=== PATIENT | male | born 1930 | race Caucasian/White ===

== ENCOUNTER 2017-12-19 17:35 | Emergency (ER) | payer MEDICARE, MEDICAID ==
[2017-12-19] MEDS ORDERED: 0.9 % SODIUM CHLORIDE 1,000 ML BAG IV ONE (18:44)
[2017-12-19] MEDS ORDERED: MORPHINE SULFATE 5 MG/ML PFS IVP ONE (18:44)
[2017-12-19] MEDS ORDERED: PROMETHAZINE HCL 6.25 MG in 0.9 % SODIUM CHLORIDE 100ML 100 ML IVPB ONE (18:44)
[2017-12-19] MEDS ORDERED: SILVER SULFADIAZINE 25 GM CREAM TOP ONE (19:11)
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
== END 2017-12-19 19:53 | disposition left against medical advice (07) ==
LOC: ER 17:35
DX: T23.272A Burn of second degree of left wrist, initial encounter (principal); T59.811A Toxic effect of smoke, accidental (unintentional), initial encounter; J68.9 Unspecified respiratory condition due to chemicals, gases, fumes and vapors; X03.1XXA Exposure to smoke in controlled fire, not in building or structure, initial encounter; I10 Essential (primary) hypertension; Y92.009 Unspecified place in unspecified non-institutional (private) residence as the place of occurrence of the external cause
CPT/HCPCS: 99284; J7030

== ENCOUNTER 2017-12-20 10:27 | Emergency (ER) | payer MEDICARE, MEDICAID ==
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
[2017-12-20] MEDS ORDERED: SILVER SULFADIAZINE 25 GM CREAM TOP ONE (11:19)
== END 2017-12-20 11:53 | disposition home or self-care (01) ==
LOC: ER 10:27
DX: T23.272A Burn of second degree of left wrist, initial encounter (principal); X03.1XXA Exposure to smoke in controlled fire, not in building or structure, initial encounter; I10 Essential (primary) hypertension; Y92.009 Unspecified place in unspecified non-institutional (private) residence as the place of occurrence of the external cause
CPT/HCPCS: 99282

== ENCOUNTER 2017-12-21 15:32 | Emergency (ER) | payer MEDICARE, MEDICAID ==
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
[2017-12-21] MEDS ORDERED: SILVER SULFADIAZINE 25 GM CREAM TOP ONE (16:02)
== END 2017-12-21 16:32 | disposition home or self-care (01) ==
LOC: ER 15:32
DX: T23.272A Burn of second degree of left wrist, initial encounter (principal); X03.1XXA Exposure to smoke in controlled fire, not in building or structure, initial encounter; I10 Essential (primary) hypertension; Y92.009 Unspecified place in unspecified non-institutional (private) residence as the place of occurrence of the external cause
CPT/HCPCS: 99283

== ENCOUNTER 2017-12-23 07:51 | Emergency (ER) | payer MEDICARE, MEDICAID ==
[2017-12-23] MEDS ORDERED: SILVER SULFADIAZINE 25 GM CREAM TOP ONE (08:02)
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
== END 2017-12-23 08:21 | disposition home or self-care (01) ==
LOC: ER 07:51
DX: T23.272A Burn of second degree of left wrist, initial encounter (principal); I10 Essential (primary) hypertension
CPT/HCPCS: 99282

== ENCOUNTER 2017-12-25 13:36 | Emergency (ER) | payer MEDICARE, MEDICAID ==
[2017-12-25] MEDS ORDERED: SILVER SULFADIAZINE 25 GM CREAM TOP ONE (13:51)
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
== END 2017-12-25 14:40 | disposition home or self-care (01) ==
LOC: ER 13:36
DX: T23.272A Burn of second degree of left wrist, initial encounter (principal); T59.811A Toxic effect of smoke, accidental (unintentional), initial encounter; X03.1XXA Exposure to smoke in controlled fire, not in building or structure, initial encounter; I10 Essential (primary) hypertension; Y92.009 Unspecified place in unspecified non-institutional (private) residence as the place of occurrence of the external cause
CPT/HCPCS: 99282